=== PATIENT | male | born 1960 | race Caucasian/White ===

== ENCOUNTER 2019-10-29 16:51 | Emergency (ER) | payer BC ==
[~2019-10-29] VITALS: Ht 177.8 cm; Wt 108.0 kg
[2019-10-29 17:44] VITALS: BP 141/72
[2019-10-29 18:18] LABS: RAPID INFLUENZA A Negative (Negative); RAPID INFLUENZA B Negative (Negative)
== END 2019-10-29 21:05 | disposition home or self-care (01) ==
LOC: ED 17:51
DX: J44.9 Chronic obstructive pulmonary disease, unspecified (principal); H92.02 Otalgia, left ear; F17.210 Nicotine dependence, cigarettes, uncomplicated
CPT/HCPCS: 71046; 87081; 87400; 87880; 99284